=== PATIENT | female | born 1990 | race Caucasian/White ===

== ENCOUNTER 2019-06-12 21:45 | Emergency (ER) | payer OTHER ==
[2019-06-12 21:52] VITALS: BMI 20.5
--- NOTE | 2019-06-12 21:54 | PDOC ---
Rapid Medical Evaluation Chief Complaint: Vaginal Bleeding Time Seen by Provider: 06/12/19 21:51 Medical Evaluation: Allergies Allergy/AdvReac Type Severity Reaction Status Date / Time No Known Allergies Allergy Verified 06/12/19 21:48 Vital Signs Temp Pulse Resp BP Pulse Ox 97.8 F 105 H 20 113/67 100 06/12/19 21:48 06/12/19 21:48 06/12/19 21:48 06/12/19 21:48 06/12/19 21:48 06/12/19 21:52 Pt c/o:lt suprapubic pain, bleeding,no IUP, hx of ectopic, approx 7-8 weeks preg Pt on brief exam: left suprapubic pain, vss Pt ordered for: u/s, labs, urine Pt to proceed to the ED Discharge Disposition - Diagnosis Abdominal pain during - Referrals - Patient Instructions - Post Discharge Activity
--- NOTE | 2019-06-12 22:39 | PDOC ---
History of Present Illness <Sherita Tatum - Last Filed: 06/13/19 01:13> - General History Source: Patient Exam Limitations: No Limitations - History of Present Illness Initial Comments: 06/12/19 22:41 29 yo female with 1 ectopic requiring D&C currently 5 weeks preg presents to the ED for 5 days of suprapubic cramping and vaginal bleeding. LMP 05/08/2019. States the bleeding started this past Saturday, has being going through approx 2 pads per day and passing large clots. The pain is located suprapubic region without radiation, described as dull and achy. Pt denies F/C/N /V, changes in bowel or bladder habits, LOC, lightheadedness, changes in vision , weakness, back pain, CP, SOB <Daniel Maddox - Last Filed: 06/13/19 01:23> - General Chief Complaint: Vaginal Bleeding Stated Complaint: VAGINAL BLEEDING Time Seen by Provider: 06/12/19 21:51 Past History <Sherita Tatum - Last Filed: 06/13/19 01:13> - Past Medical History COPD: No - Suicide/Smoking/Psychosocial Hx Smoking History: Never smoked <Daniel Maddox - Last Filed: 06/13/19 01:23> - Past Medical History Allergies/Adverse Reactions: Allergies Allergy/AdvReac Type Severity Reaction Status Date / Time No Known Allergies Allergy Verified 06/12/19 21:48 Home Medications: Ambulatory Orders NK [No Known Home Medication] 06/12/19 Review of Systems - Review of Systems Constitutional: Yes: See HPI HEENTM: Yes: See HPI Respiratory: Yes: See HPI Cardiac (ROS): Yes: See HPI ABD/GI: Yes: See HPI : Yes: See HPI Musculoskeletal: Yes: See HPI Integumentary: Yes: See HPI Neurological: Yes: See HPI <Daniel Maddox - Last Filed: 06/13/19 01:23> *Physical Exam - Vital Signs Last Vital Signs Temp Pulse Resp BP Pulse Ox 97.8 F 105 H 20 113/67 100 06/12/19 21:48 06/12/19 21:48 06/12/19 21:48 06/12/19 21:48 06/12/19 21:48 <Sherita Tatum - Last Filed: 06/13/19 01:13> - Vital Signs Last Vital Signs Temp Pulse Resp BP Pulse Ox 97.8 F 105 H 20 113/67 100 06/12/19 21:48 06/12/19 21:48 06/12/19 21:48 06/12/19 21:48 06/12/19 21:48 - Physical Exam General Appearance: Yes: Nourished, Appropriately Dressed. No: Apparent Distress HEENT: positive: EOMI, SILVESTRE Neck: positive: Supple. negative: Carotid bruit Respiratory/Chest: positive: Lungs Clear, Normal Breath Sounds. negative: Respiratory Distress, Accessory Muscle Use, Crackles, Rales, Rhonchi, Stridor, Wheezing Cardiovascular: positive: Regular Rhythm, S1, S2, Tachycardia. negative: Edema , JVD, Murmur Vascular Pulses: Dorsalis-Pedis (R): 4+, Doralis-Pedis (L): 4+ Female Pelvic Exam: positive: normal external exam, cervical os closed, normal size ovaries. negative: CMT, Bartholin mass, adnexal tenderness Gastrointestinal/Abdominal: positive: Flat, Soft, Tenderness (suprapubic). negative: Pulsatile Mass, Distended, Rebound Musculoskeletal: negative: CVA Tenderness Extremity: positive: Normal Capillary Refill, Normal Inspection Integumentary: positive: Normal Color, Dry, Warm Neurologic: positive: Fully Oriented, Alert, Normal Mood/Affect, Normal Response , Motor Strength 5/5 <Daniel Maddxo - Last Filed: 06/13/19 01:23> ED Treatment Course - LABORATORY CBC & Chemistry Diagram: 06/12/19 22:45 06/12/19 22:45 - ADDITIONAL ORDERS Additional order review: Laboratory Results 06/12/19 06/12/19 06/12/19 23:00 22:45 22:45 PT with INR 11.10 INR 0.94 Sodium 138 Potassium 3.8 Chloride 104 Carbon Dioxide 26 Anion Gap 7 L BUN 10.2 Creatinine 0.8 Est GFR (CKD-EPI)AfAm 117.10 Est GFR (CKD-EPI)NonAf 101.04 Random Glucose 111 H Calcium 8.7 Total Bilirubin 0.2 AST 11 L ALT 18 Alkaline Phosphatase 39 L Total Protein 6.8 Albumin 3.3 L Beta HCG, Quant 2182.4 Blood Type A POSITIVE Antibody Screen Negative 06/12/19 22:45 PT with INR INR Sodium Potassium Chloride Carbon Dioxide Anion Gap BUN Creatinine Est GFR (CKD-EPI)AfAm Est GFR (CKD-EPI)NonAf Random Glucose Calcium Total Bilirubin AST ALT Alkaline Phosphatase Total Protein Albumin Beta HCG, Quant Cancelled Blood Type Antibody Screen 06/12/19 22:45 RBC 3.45 L MCV 94.5 MCHC 34.0 RDW 12.9 MPV 8.3 Neutrophils % 59.0 Lymphocytes % 28.8 Monocytes % 7.7 Eosinophils % 3.8 Basophils % 0.7 - Medications Given in the ED: ED Medications Discontinued Medications Generic Name Dose Route Start Last Admin Trade Name Freq PRN Reason Stop Dose Admin Acetaminophen 1,000 mg 06/12/19 22:42 06/12/19 23:04 Ofirmev Injection - IVPB 06/12/19 22:43 1,000 mg ONCE ONE Administration Sodium Chloride 1,000 mls @ 1,000 mls/hr 06/12/19 23:51 06/13/19 00:02 Normal Saline - IV 06/13/19 00:50 1,000 mls/hr ASDIR STA Administration <Sherita Tatum - Last Filed: 06/13/19 01:13> - LABORATORY CBC & Chemistry Diagram: 06/12/19 22:45 06/12/19 22:45 <Daniel Maddox - Last Filed: 06/13/19 01:23> Medical Decision Making - Medical Decision Making 06/12/19 23:53 29 yo female with 1 ectopic requiring D&C currently 5 weeks preg presents to the ED for 5 days of suprapubic cramping and vaginal bleeding. LMP 05/08/2019. States the bleeding started this past Saturday, has being going through approx 2 pads per day and passing large clots. The pain is located suprapubic region without radiation, described as dull and achy. Pt denies F/C/N /V, changes in bowel or bladder habits, LOC, lightheadedness, changes in vision , weakness, back pain, CP, SOB vitals show 105 HR otherwise WNL Pt complaining of abdominal pain and cramping Labs including cbc, cmp, type and screen, PT/INR and beta pending Tylenol and fluids given Pain improved with tylenol Transvag US neg for torsion, ectopic. No fetus visualized 06/13/19 00:57 beta 2182 pt will f/u for repeat beta and sono <Daniel Maddox - Last Filed: 06/13/19 01:23> *DC/Admit/Observation/Transfer - Discharge Dispostion Decision to Admit order: No <Sherita Tatum - Last Filed: 06/13/19 01:13> - Discharge Dispostion Decision to Admit order: No <Daniel Maddox - Last Filed: 06/13/19 01:23> Diagnosis at time of Disposition: Abdominal pain during , Threatened - Discharge Dispostion Disposition: HOME Condition at time of disposition: Stable - Referrals Referrals: Abe Vilchis MD [Staff Physician] - - Patient Instructions Printed Discharge Instructions: DI for Threatened , DI for Ectopic Additional Instructions: Consulte a lazcano mdico primario dentro de las prximas 48 horas. Consulte al mdico obstetra / gineclogo, Dr. Vilchis, lo antes posible. Repita el anlisis de en dentro de 2 soliman, que incluye lazcano nmero Beta Quant (hoy era 2180) y reptase roosevelt ecografa transvaginal para bronson si hay un beb presente en lazcano tero. Es probable que haya tenido un aborto cuando extrajo en de lazcano vagina y es muy importante que se repita el anlisis de en dentro de 2 soliman. Si tiene sangrado persistente, dolor abdominal, debilidad, incapacidad para comer o beber, regrese a la andrei de emergencias ms cercana lo antes posible para asegurarse de que no haya un embarazo ectpico. Se le sumner proporcionado todos mary anlisis de en y resultados de imgenes, llvelos con usted a lazcano hema. Humberto Print Language: SYRIAC
[2019-06-12] MEDS ORDERED: ACETAMINOPHEN 1000 MG/100 ML VIAL (NON FORMULARY) IVPB ONE (22:42)
[2019-06-12] MEDS ORDERED: ACETAMINOPHEN INJECTION 100 ML IVPB ONE (23:02)
[2019-06-12 23:10] LABS: BASO % 0.7 % (0-2.0); EOS % 3.8 % (0-4.5); HEMATOCRIT 32.6 % (32.4-45.2); HEMOGLOBIN 11.1 GM/dL (10.7-15.3); LYMPH % 28.8 % (8-40); MCH 32.2 pg (25.7-33.7); MEAN CELL VOLUME 94.5 fl (80-96); MEAN PLT VOLUME 8.3 fl (7.5-11.1); MONO % 7.7 % (3.8-10.2); PLATELET COUNT 386 K/MM3 (134-434); RBC 3.45 M/mm3 (3.60-5.2); RDW 12.9 % (11.6-15.6); WHITE BLOOD COUNT 9.3 K/mm3 (4.0-10.0)
[2019-06-12 23:33] LABS: INR 0.94 (0.83-1.09); PROTHROMBIN TIME (PATIENT) 11.1 SEC (9.7-13.0)
--- NOTE | 2019-06-12 23:40 | PDOC ---
Attending Attestation - Resident Resident Name: Daniel Maddox - ED Attending Attestation I have performed the following: I have examined & evaluated the patient, The case was reviewed & discussed with the resident, I agree w/resident's findings & plan - HPI HPI: 06/12/19 23:38 Pt comes with vaginal bleeding and she thinks that she may be . - Physicial Exam PE: 06/13/19 05:49 Agree with resident exam. Pt is stable and she is not having pelvic or abd pain at this time. Afebrile. No flank pain. - Medical Decision Making 06/12/19 23:38 Sono is normal; no sign of ; left small ovarian cyst; right adnexa not well visualized. CBC normal; chem pending; bhcg pending. 06/13/19 00:01 chem is normal HCG pending 06/13/19 05:49 UA normal; only blood in the urine 06/13/19 05:50 Pt has a bhcg of 2100s and she will be asked to return in 48 hrs to repeat bhcg ; Pt has threatened ; Pt has rh positive
[2019-06-12 23:51] LABS: ALBUMIN 3.3 g/dl (3.4-5.0); BILIRUBIN,TOTAL 0.2 mg/dL (0.2-1); BLOOD UREA NITROGEN 10.2 mg/dL (7-18); CALCIUM 8.7 mg/dL (8.5-10.1); CREATININE 0.8 mg/dL (0.55-1.3); POTASSIUM 3.8 mmol/L (3.5-5.1); TOT PROT 6.8 g/dl (6.4-8.2)
[2019-06-12] MEDS ORDERED: SODIUM CHLORIDE 1,000 ML IV STA (23:51)
[2019-06-13 01:30] VITALS: BP 110/70; PULSE 90; TEMP 98.3
[2019-06-13 02:41] LABS: HYALINE CASTS 0 /lpf (0-8); URINE APPEARANCE TURBID; URINE BACTERIA 26.2 /hpf (NEGATIVE); URINE BILIRUBIN NEGATIVE (NEGATIVE); URINE COLOR YELLOW; URINE GLUCOSE (UA) NEGATIVE (NEGATIVE); URINE KETONE NEGATIVE (NEGATIVE); URINE LEUK ESTERASE NEGATIVE (NEGATIVE); URINE NITRITE NEGATIVE (NEGATIVE); URINE PROTEIN NEGATIVE (NEGATIVE); URINE UROBILINOGEN 0.2 mg/dL (0.2-1.0); URINE WBC 1 /hpf (0-5)
[2019-06-13 03:05] LABS: URINE RBC 82 /hpf (0-4)
[2019-06-13 03:06] LABS: YEAST 0 (NEGATIVE)
== END 2019-06-13 02:17 | disposition home or self-care (01) ==
LOC: JER 21:45
PROC: 3E0337Z Introduction of Electrolytic and Water Balance Substance into Peripheral Vein, Percutaneous Approach (ICD-10-PCS; principal; 2019-06-12)
PROC: 3E033NZ Introduction of Analgesics, Hypnotics, Sedatives into Peripheral Vein, Percutaneous Approach (ICD-10-PCS; 2019-06-12)
DX: O26.891 Other specified pregnancy related conditions, first trimester (principal); O20.0 Threatened abortion; Z3A.01 Less than 8 weeks gestation of pregnancy
CPT/HCPCS: 36415; 76817-TC; 80053; 81003; 84702; 85025; 85610; 86850; 86900; 86901; 96361; 96374; 99282-25; J0131; J7030

== ENCOUNTER 2019-09-24 14:30 | Emergency (ER) | payer OTHER ==
[2019-09-24 14:38] VITALS: BP 90/65; PULSE 117; TEMP 102; BMI 22.8
[2019-09-24] MEDS ORDERED: IBUPROFEN 600 MG TABLET (FP) PO ONE (15:29)
[2019-09-24] MEDS ORDERED: DEXAMETHASONE LIQUID 0.5 MG/5 ML PO ONE (15:29)
--- NOTE | 2019-09-24 15:35 | PDOC ---
History of Present Illness - General Chief Complaint: Cold Symptoms Stated Complaint: FLU SYMPTOMS Time Seen by Provider: 09/24/19 14:52 History Source: Patient Exam Limitations: No Limitations Past History - Travel Traveled outside of the country in the last 30 days: No Close contact w/someone who was outside of country & ill: No - Past Medical History Allergies/Adverse Reactions: Allergies Allergy/AdvReac Type Severity Reaction Status Date / Time No Known Allergies Allergy Verified 09/24/19 14:39 Home Medications: Ambulatory Orders Acetaminophen [Tylenol] 650 mg PO Q4H #45 tablet 09/24/19 Ibuprofen 600 mg PO Q6H #30 tablet 09/24/19 COPD: No - Psycho Social/Smoking Cessation Hx Smoking History: Never smoked Review of Systems - Review of Systems Able to Perform ROS?: Yes Comments:: 09/24/19 15:31 CONSTITUTIONAL: Present: fever Absent: chills, diaphoresis, generalized weakness, malaise, loss of appetite HEENT: Present: sore throat Absent: rhinorrhea, nasal congestion, throat swelling, difficulty swallowing, mouth swelling, ear pain, eye pain, visual Changes CARDIOVASCULAR: Absent: chest pain, loss of consciousness, palpitations, irregular heart rate, peripheral edema RESPIRATORY: Absent: cough, shortness of breath, dyspnea with exertion, orthopnea, wheezing, stridor, hemoptysis SKIN: Absent: rash, itching, pallor NEUROLOGIC: Absent: headache, focal weakness or paresthesias, dizziness, unsteady gait, seizure, mental status changes, bladder or bowel incontinence PSYCHIATRIC: Absent: anxiety, depression, suicidal or homicidal ideation, hallucinations. Is the patient limited Mongolian proficient: No *Physical Exam - Vital Signs Last Vital Signs Temp Pulse Resp BP Pulse Ox 102 F H 117 H 18 90/65 100 09/24/19 14:36 09/24/19 14:36 09/24/19 14:36 09/24/19 14:36 09/24/19 14:36 - Physical Exam 09/24/19 15:35 GENERAL: The patient is awake, alert, and fully oriented, in no acute distress. HEAD: Normal with no signs of trauma. EYES: Pupils equal, round and reactive to light, extraocular movements intact, sclera anicteric, conjunctiva clear. HEENT: No nasal congestion or rhinorrhea. No sinus Tenderness. Mucous membranes are moist. (+) tonsillar erythema, exudate and edema. Uvula is midline. No TM bulging, dullness or erythema. Positive cervical adenopathy EXTREMITIES: Normal range of motion, no edema. NEUROLOGICAL: Normal speech, normal gait. PSYCH: Normal mood, normal affect. SKIN: Warm, Dry, normal turgor, no rashes or lesions noted. Medical Decision Making - Medical Decision Making 09/24/19 15:35 Patient is a 29-year-old female no past medical history who presents the ER with 1 day of sore throat and fever. She states she has not taken anything for her pain or fever. Her triage vitals are notable for temperature of 102 Fahrenheit. She states that it is difficult to swallow. Denies cough, earache , nausea, vomiting. A/P: Pharyngitis On exam the throat is erythematous and edematous. Positive cervical adenopathy on the left side. Rapid strep sent. Motrin and steroids given for symptoms Reevaluate 09/24/19 16:08 Strep positive. Requesting Bicillin Tylenol given DC home with PCP follow up I discussed the physical exam findings, ancillary test results and final diagnoses with the patient. I answered all of the patient's questions. The patient was satisfied with the care received and felt comfortable with the discharge plan and treatment plan. The Patient agrees to follow up with the primary care physician/specialist within 24-72 hours. Return precautions were given. Discharge - Discharge Information Problems reviewed: Yes Clinical Impression/Diagnosis: Strep pharyngitis Condition: Stable Disposition: HOME - Admission No - Follow up/Referral Referrals: Adalid Vera MD [Staff Physician] - - Patient Discharge Instructions Patient Printed Discharge Instructions: DI for Strep Throat Additional Instructions: You have strep throat. This is a bacterial infection. You were treated with Bicillin today. This is an antibiotic. You do not need anymore antibiotics. You may take Motrin 800 mg every 8 hours as needed for pain or fever. Warm water gargles and cough drops and just may also help her symptoms. Please throw way your toothbrush 3 days into treatment to prevent reinfection. Please follow up with your primary care doctor next week. Return to emergency department if you have worsening pain, difficulty swallowing , changes in your voice, lightheadedness, dizziness, or any changes in your symptoms. Tienes estreptococos. Esta es roosevelt infeccin bacteriana. Hoy te trataron con Bicillin. Wyano es un antibitico. Ya no necesitaantibiticos. Puede isabel Motrin 800 mg cada 8 horas segn sea necesario para el dolor o la fiebre. El agua tibia hace grgaras y gotas para la tos y tambin puede ayudar a mary sntomas. Por favor, tire lazcano cepillo de dientes 3 soliman en el tratamiento para evitar la reinfeccin. Por favor, shabnam un seguimiento con lazcano mdico de atencin primaria la prxima semana. Regrese al servicio de urgencias si tiene dolor que empeora, dificultad para tragar, cambios en la voz, mareos, mareos o cualquier cambio en los sntomas. - Post Discharge Activity
[2019-09-24] MEDS ORDERED: IBUPROFEN 100 MG/5 ML UNIT DOSE CUPS ONE (15:53)
[2019-09-24] MEDS ORDERED: DEXAMETHASONE SOD PHOSPHATE 10 MG/1 ML VIAL ONE (15:55)
[2019-09-24] MEDS ORDERED: PENICILLIN G BENZATHINE 1,200,000 UNIT/2 ML PFS IM ONE ×2 (16:12→16:17)
[2019-09-24] MEDS ORDERED: ACETAMINOPHEN 325 MG TABLET (FP) PO ONE (16:12)
[2019-09-24] MEDS ORDERED: ACETAMINOPHEN 325 MG TABLET (FP) ONE (16:17)
== END 2019-09-24 17:09 | disposition home or self-care (01) ==
LOC: JERFT 14:30
DX: J02.0 Streptococcal pharyngitis (principal); B95.0 Streptococcus, group A, as the cause of diseases classified elsewhere
CPT/HCPCS: 87880; 99281-25